=== PATIENT | female | born 1950 | race Two or more races ===

== ENCOUNTER 2024-12-04 15:43 | Emergency (ER) | payer OTHER ==
[~2024-12-04] VITALS: Ht 157.5 cm; Wt 72.6 kg
[2024-12-04] MEDS ORDERED: CRESTOR40 MG PO (16:23)
[2024-12-04] MEDS ORDERED: NEURONTIN600 M1 PO (16:23)
[2024-12-04] MEDS ORDERED: IRBESARTAN300 MG PO (16:24)
[2024-12-04] MEDS ORDERED: ONDANSETRON HCL 2 MG/ML VIAL IV ONE (17:45)
[2024-12-04] MEDS ORDERED: 0.9 % SODIUM CHLORIDE 1,000 ML IV SCH (17:45)
[2024-12-04] MEDS ORDERED: FAMOTIDINE/PF 20 MG/2 ML VIAL IV PUSH ONE (17:45)
[2024-12-04] MEDS ORDERED: METRONIDAZOLE/SODIUM CHLORIDE 500 MG/100 ML PIGGYBACK IV ONE ×2 (17:45→17:53)
[2024-12-04] MEDS ORDERED: ONDANSETRON HCL 2 MG/ML VIAL ONE (17:53)
[2024-12-04] MEDS ORDERED: FAMOTIDINE/PF 20 MG/2 ML VIAL ONE (17:53)
[2024-12-04 19:07] LABS: HEMATOCRIT 34.1 % (36.0-45.00); HEMOGLOBIN 11.5 g/dL (12.0-15.00); MEAN CELL VOLUME 90.4 fL (80.00-100.00); MEAN CORPUSCULAR HEMOGLOBIN 30.5 pg (27.00-32.0); MEAN CORPUSCULAR HGB CONC 33.8 g/dl (32.0-36.0); PLATELET COUNT 218 K/uL (150-450); RED BLOOD COUNT 3.77 M/uL (4.00-6.00)
[2024-12-04 19:32] LABS: ALBUMIN 3.6 gm/dL (3.4-5.0); BILIRUBIN TOTAL 0.58 mg/dL (0.3-1.2); CALCIUM 8.6 mg/dL (8.5-10.1); GFR 53.91; GLOBULINA 3.8 G/DL (2.4-3.5); POTASSIUM 4.13 mEq/L (3.5-5.1); TOTAL PROTEIN 7.4 gm/dL (6.4-8.2)
== END 2024-12-05 | disposition home or self-care (01) ==
LOC: ER 15:46
PROVIDERS: Emergency Medicine
DX: R11.10 Vomiting, unspecified (principal)
CPT/HCPCS: 36415; 96365; 96366; 99282; J2405; J3490 ×2; J7030